=== PATIENT | male | born 1995 | race African-American/Black ===

== ENCOUNTER 2016-09-11 20:35 | Emergency (ER) | payer SELFPAY ==
[~2016-09-11] VITALS: Ht 177.8 cm; Wt 88.0 kg
[2016-09-12 00:52] LABS: CHLORIDE 106 mEq/L (98-107)
[2016-09-12 00:56] LABS: BASOPHILS % 0.5 % (0.0-2.0); EOSINOPHILS % 2.4 % (0.0-5.0); HEMATOCRIT. 41.8 % (42.0-52.0); HEMOGLOBIN. 14.1 g/dL (14.0-18.0); LYMPHOCYTES % 40.3 % (20.0-50.0); MEAN CORPUSCULAR HEMOGLOBIN 30.4 pg (28.0-32.0); MEAN PLATELET VOLUME 9.3 fl (7.4-10.4); MONOCYTES % 10.1 % (2.0-8.0); NEUTROPHILS % 46.7 % (40.0-76.0); PLATELET 216 x1000/uL (130-400); RED BLOOD CELL COUNT 4.65 mill/uL (4.7-6.1); RED CELL DISTRIBUTION WIDTH 13.6 % (11.6-14.6)
[2016-09-12 01:01] LABS: CARBON DIOXIDE 28 mEq/L (21-32)
[2016-09-12 01:05] VITALS: BP 141/80
== END 2016-09-12 01:53 | disposition home or self-care (01) ==
LOC: ER 20:36
DX: R55 Syncope and collapse (principal); R51 Headache
CPT/HCPCS: 36415; 70450; 80053; 85025; 93005; 99285